=== PATIENT | male | born 1980 | race Caucasian/White ===

== ENCOUNTER 2016-07-23 21:19 | Emergency (ER) | payer SELFPAY ==
[~2016-07-23] VITALS: Ht 165.1 cm; Wt 83.5 kg
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
[2016-07-23 22:00] VITALS: BP 157/66
[2016-07-23] MEDS ORDERED: DIPHTH,PERTUSS(ACELL),TET TOX 0.5 ML DISP.SYRIN. VAX IM ONE (22:00)
[2016-07-23] MEDS ORDERED: KETOROLAC TROMETHAMINE 60 MG/2 ML SYRINGE. IM ONE (22:00)
[2016-07-23] MEDS ORDERED: OXYC5CAP3 PO (22:04)
[2016-07-23] MEDS ORDERED: FENTANYL PF 100 MCG/2 ML VIAL. IV ONE (22:15)
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
== END 2016-07-23 22:30 | disposition home or self-care (01) ==
LOC: EEVIPCON 21:19 → ER 21:19
DX: M25.512 Pain in left shoulder (principal); Z88.8 Allergy status to other drugs, medicaments and biological substances
CPT/HCPCS: 71010; 73030; 96372; 96374; 99284; J1885; J3010